=== PATIENT | male | born 1955 | race African-American/Black ===

== ENCOUNTER 2016-09-08 09:33 | Day surgery (SDC) | payer BC ==
[~2016-09-08 09:33] MED LIST: CHONDR SU A NA/HYALUR INTRAOC KIT (SURGICARE) ONE; EPINEPHRINE INJ/PF 1 MG/1 ML AMPULE ONE; KETOROLAC TROMETHAMINE 0.45% 4 DROP/0.4 ML DROPERETTE OD PRN; LIDOCAINE 1% INJ-PF (10 MG/ML) 30 ML SDV ONE; TOBRAMYCIN SULFATE/DEXAMETH OPH OINTMENT 3.5 GM ONE
[2016-09-08] MEDS ORDERED: EPINEPHRINE INJ/PF 1 MG/1 ML AMPULE ONE (10:02)
[2016-09-08] MEDS ORDERED: TOBRAMYCIN SULFATE/DEXAMETH OPH OINTMENT 3.5 GM ONE (10:03)
[2016-09-08] MEDS ORDERED: LIDOCAINE 1% INJ-PF (10 MG/ML) 30 ML SDV ONE (10:03)
[2016-09-08] MEDS ORDERED: CHONDR SU A NA/HYALUR INTRAOC KIT (SURGICARE) ONE (10:03)
[2016-09-08] MEDS: CYCLOPENTOLATE 0.2%/PHENYLEPHRINE 1% OPH SOLN 2 ML OD PRN ×3 (10:19→10:45)
[2016-09-08] MEDS: TROPICAMIDE 1% OPH SOLN 3 ML OD PRN ×3 (10:20→10:46)
[2016-09-08] MEDS: BESIFLOXACIN HCL 0.6% OPH SUSP 5 ML BOTTLE OD PRN ×3 (10:21→11:17)
[2016-09-08] MEDS: TETRACAINE HCL 0.5% OPH SOLN 0.6 ML DROPERETTE OD PRN ×3 (10:23→11:00)
[2016-09-08] MEDS ORDERED: MIDAZOLAM 2 MG/2 ML INJ ONE (10:48)
[2016-09-08] MEDS ORDERED: FENTANYL CITRATE INJ/PF 100 MCG/2 ML AMPUL ONE (10:49)
== END 2016-09-08 12:02 | disposition home or self-care (01) ==
LOC: SC 09:33
PROVIDERS: ATTEND Ophthalmology
PROC: 08RJ3JZ Replacement of Right Lens with Synthetic Substitute, Percutaneous Approach (ICD-10-PCS; principal; 2016-09-08 10:45)
DX: H25.11 Age-related nuclear cataract, right eye (principal); I10 Essential (primary) hypertension; Z79.899 Other long term (current) drug therapy; Z87.891 Personal history of nicotine dependence
CPT/HCPCS: 66984; 82962; V2630; J2250; J3490 ×3; J0171; J3010; 142

== ENCOUNTER 2017-09-08 06:56 | Day surgery (SDC) | payer OTHER, BC ==
[~2017-09-08 06:56] MED LIST changes: -CHONDR SU A NA/HYALUR INTRAOC KIT (SURGICARE) ONE; -EPINEPHRINE INJ/PF 1 MG/1 ML AMPULE ONE; -KETOROLAC TROMETHAMINE 0.45% 4 DROP/0.4 ML DROPERETTE OD PRN; +KETOROLAC TROMETHAMINE 0.45% 4 DROP/0.4 ML DROPERETTE OS PRN; -LIDOCAINE 1% INJ-PF (10 MG/ML) 30 ML SDV ONE; -TOBRAMYCIN SULFATE/DEXAMETH OPH OINTMENT 3.5 GM ONE
[2017-09-08] MEDS: TROPICAMIDE 1% OPH SOLN 3 ML OS PRN ×3 (07:50→08:10)
[2017-09-08] MEDS: CYCLOPENTOLATE 0.2%/PHENYLEPHRINE 1% OPH SOLN 2 ML OS PRN ×3 (07:50→08:10)
[2017-09-08] MEDS: TETRACAINE HCL 0.5% OPH SOLN 2 ML OS PRN ×4 (07:50→08:18)
[2017-09-08] MEDS: BESIFLOXACIN HCL 0.6% OPH SUSP 5 ML BOTTLE OS PRN ×4 (07:51→08:51)
[2017-09-08] MEDS ORDERED: MIDAZOLAM 2 MG/2 ML INJ ONE (08:00)
[2017-09-08] MEDS: EPINEPHRINE INJ/PF 1 MG/1 ML AMPULE ONE ×2 (08:28)
[2017-09-08] MEDS: LIDOCAINE 1% INJ-PF (10 MG/ML) 30 ML SDV ONE ×2 (08:29)
[2017-09-08] MEDS: CHONDR SU A NA/HYALUR INTRAOC KIT (SURGICARE) ONE ×2 (08:31)
--- NOTE | 2017-09-13 15:00 | [facility] DISCHARGE SUMMARY E ---
[facility] Discharge Summary NAME: KITA GAITAN AGE: 61Y ADMITTED: 09/08/2017 DISCHARGED: 09/08/2017 FINAL DIAGNOSIS: Cataract, left eye. HOSPITAL COURSE: This is a 61-year-old patient who underwent cataract extraction of the left eye. He underwent surgery because he was having difficulty seeing small print. DISCHARGE INSTRUCTIONS: He should be on a regular diet. No bending at his waist, no heavy lifting. He should use Besivance, Ilevro and Durezol at 3:00 p.m. and 8:00 p.m. Sleep with a rigid shield. I will see him for a 1-day postoperative tomorrow. DICTATING PHYSICIAN: NIKOLAI PRITCHETT M.D. [id number] PHY#: [id number] ID: [id number] JOB#: [id number] ACCT: [id number] cc:NIKOLAI PRITCHETT M.D. >
--- NOTE | 2017-09-13 15:00 | [facility] OPERATIVE REPORT E ---
[facility] Operative Report NAME: KITA GAITAN AGE: 61Y DATE OF SURGERY: 09/08/2017 ROOM: PREOPERATIVE DIAGNOSIS: CATARACT, LEFT EYE. POSTOPERATIVE DIAGNOSIS: CATARACT, LEFT EYE. OPERATION: Cataract extraction with insertion of an IOL of the left eye. SURGEON: NIKOLAI PRITCHETT M.D. ANESTHESIA: Topical. PROCEDURE: After obtaining appropriate consent, the patient's left eye was prepped and draped in sterile fashion as well as the surgeon in a sterile manner and cataract surgery was started. First a paracentesis blade was used to make a side-port incision. Viscoelastic was used to inflate the anterior chamber. Next a 2.4 mm incision was made with a 2.4 mm blade, clear corneal temporally. A continuous capsulorrhexis was made using a cystotome and Utrata forceps. Following this hydrodissection was carried out to make the lens fully loose and mobile and it was rotated 90 degrees. Following this, a [id number] technique was used to phacoemulsify the lens with a CDE of 10.92. The remaining cortex was removed with irrigation/aspiration. Provisc was instilled into the capsular bag to inflate the bag. A ZCB00, 23.5 diopter lens was placed. The remaining viscoelastic material was removed with irrigation/aspiration. Following this, the incision was found to be watertight. Besivance was instilled into the eye and a protective shield was placed over the eye. The patient returned to the postoperative recovery in stable condition. DICTATING PHYSICIAN: NIKOLAI PRITCHETT M.D. [id number] PHY#: [id number] ID: [id number] JOB#: [id number] ACCT: [id number] cc:NIKOLAI PRITCHETT M.D. >
== END 2017-09-08 09:27 | disposition home or self-care (01) ==
LOC: SC 06:56
PROVIDERS: ATTEND Internal Medicine
DX: H25.12 Age-related nuclear cataract, left eye (principal); Z96.1 Presence of intraocular lens; E11.9 Type 2 diabetes mellitus without complications; I10 Essential (primary) hypertension; Z87.891 Personal history of nicotine dependence; Z79.899 Other long term (current) drug therapy
CPT/HCPCS: 66984; V2632; J2250; J3490 ×2; J0171; 142

== ENCOUNTER 2018-02-05 23:29 | Emergency (ER) | payer OTHER, BC ==
[2018-02-06 00:51] LABS: AMORPHOUS SEDIMENT,URINE TRACE /HPF; APPEARANCE,URINE CLOUDY; BILIRUBIN,URINE NEGATIVE (NEGATIVE); COLOR,URINE YELLOW; GLUCOSE, URINE NEGATIVE (NEGATIVE); KETONES,URINE TRACE mg/dL (NEGATIVE); LEUKOCYTE ESTERASE,URINE LARGE (NEGATIVE); NITRITE,URINE NEGATIVE (NEGATIVE); PROTEIN,URINE NEGATIVE (NEGATIVE); URINE SPECIFIC GRAVITY 1.006; UROBILINOGEN,URINE NEGATIVE mg/dL (<2.0)
[2018-02-06] MEDS ORDERED: SULFAMETHOXAZOLE/TRIMETHOPRIM 800-160 MG TABLET PO ONE (01:08)
--- NOTE | 2018-02-06 01:11 | ER Document Report ---
ED General - General Chief Complaint: Urinary Frequency Stated Complaint: FREQUENT URINATION Time Seen by Provider: 02/06/18 00:49 Notes: Patient is a 62-year-old male presents with complaint of urinary frequency for the last 2-3 days. He says he does not have any true pain but feels a sensation as if his bladder is full and then has to go to urinate and not much urine will come out. Denies any history of prostate issues. No fevers. No diarrhea. Says his primary care doctor is the [place]. He denies any recent sexual activity or risk for sexually transmitted disease. He denies any abnormal discharge from his penis. No abdominal pain. TRAVEL OUTSIDE OF THE [place] IN LAST 30 DAYS: No - Related Data Allergies/Adverse Reactions: No Known Allergies Allergy (Unverified 09/03/16 14:14) Past Medical History - Social History Smoking Status: Never Smoker Frequency of alcohol use: None Drug Abuse: None Family History: Reviewed & Not Pertinent - Past Medical History Cardiac Medical History: Reports: Hx Hypertension Denies: Hx Heart Attack Pulmonary Medical History: Denies: Hx Asthma Neurological Medical History: Denies: Hx Cerebrovascular Accident, Hx Seizures GI Medical History: Denies: Hx Hepatitis, Hx Hiatal Hernia, Hx Ulcer Infectious Medical History: Denies: Hx Hepatitis Past Surgical History: Denies: Hx Open Heart Surgery, Hx Pacemaker Review of Systems - Review of Systems Notes: My Normal Review Basic REVIEW OF SYSTEMS: CONSTITUTIONAL : Denies fever, chills, or sweats. Denies recent illness. GASTROINTESTINAL: Denies abdominal pain. Denies nausea, vomiting, or diarrhea. Genitourinary: Patient has some urinary frequency with pressure in the bladder region when he has to go pee. MUSCULOSKELETAL: Denies neck or back pain or joint pain or swelling. SKIN: Denies rash or skin lesions. NEUROLOGICAL: Denies altered mental status or loss of consciousness. ALL OTHER SYSTEMS REVIEWED AND NEGATIVE. Physical Exam - Vital signs Vitals: Temp Pulse Resp BP Pulse Ox 98.4 F 101 H 18 149/76 H 96 02/05/18 23:44 02/05/18 23:44 02/05/18 23:44 02/05/18 23:44 02/05/18 23:44 - Notes Notes: General Appearance: Well nourished, alert, cooperative, no acute distress, no obvious discomfort. Well-appearing. Vitals: reviewed, See vital signs table. Eyes: PERRL, EOMI, Conjuctiva clear Abdomen: Normal BS, soft, No rigidity, No abdominal tenderness, No guarding, no rebound, no abdominal masses, no organomegaly Multiple: Normal external genitalia without rash. No urethral discharge. Skin: warm, dry, appropriate color, no rash Neuro: speech clear, oriented x 3, normal affect, responds appropriately to questions. Course - Re-evaluation Re-evalutation: 02/06/18 06:00 Patient's urinalysis shows evidence of infection. Based on the patient's age and no previous history of UTIs suspect this most likely related to prostatitis. We will treat him with 14 days of antibiotic. I encouraged him follow-up with his primary care doctor in 1 week for reevaluation and recheck the urine to make sure the infection is clear. I encourage him return to ER if he has fevers, worsening of his symptoms, or if he feels unwell. Patient agrees with plan and will be discharged home. Dictation of this chart was performed using voice recognition software; therefore, there may be some unintended grammatical errors. - Vital Signs Vital signs: Temp Pulse Resp BP Pulse Ox 97.7 F 102 H 18 148/92 H 100 02/06/18 01:23 02/06/18 01:23 02/06/18 01:23 02/06/18 01:23 02/06/18 01:23 - Laboratory Laboratory results interpreted by me: 02/06/18 00:29 Urine Ketones TRACE H Urine Blood MODERATE H Ur Leukocyte Esterase LARGE H Discharge - Discharge Clinical Impression: Pyuria Prostatitis Qualifiers: Prostatitis type: acute Qualified Code(s): N41.0 - Acute prostatitis Condition: Stable Disposition: HOME, SELF-CARE Additional Instructions: I suspect that your symptoms are likely related to prostatitis. This would be the most common cause of infection in your urine and the symptoms you are having at your age. I have prescribed an antibiotic. Please take it for 2 weeks. Please follow-up with your doctor in 1 week for reevaluation to make sure your symptoms are improving and also to make sure your urine is clearing. Please return to the ER immediately if you have fevers, pain, vomiting, or worsening of your symptoms. Please stop the antibiotic and return to the ER immediately if you develop a rash or diarrhea. Prescriptions: Sulfamethoxazole/Trimethoprim [Bactrim Ds Tablet] 1 each PO BID #28 tablet
[2018-02-06 01:25] VITALS: BP 148/92
== END 2018-02-06 01:47 | disposition home or self-care (01) ==
LOC: ER 23:29
DX: N39.0 Urinary tract infection, site not specified (principal); N41.0 Acute prostatitis; R35.0 Frequency of micturition; I10 Essential (primary) hypertension
CPT/HCPCS: 81001; 99283

== ENCOUNTER 2018-02-08 20:36 | Emergency (ER) | payer OTHER, BC ==
[2018-02-08] MEDS ORDERED: ONDANSETRON 4 MG TAB.RAPDIS PO ONE (21:03)
[2018-02-08] MEDS ORDERED: OXYCODONE-ACETAMINOPHEN 5-325 MG TABLET PO ONE (21:03)
--- NOTE | 2018-02-08 21:05 | ER Document Report ---
ED Medical Screen (RME) - General Chief Complaint: Pain With Urination Stated Complaint: PAINFUL URINATION Time Seen by Provider: 02/08/18 21:02 Mode of Arrival: Ambulatory Information source: Patient Notes: Patient is a 62-year-old male who presents with chief complaint of scrotal pain and dysuria. Patient reports he has had this ongoing since last Tuesday. He states he was seen here on Tuesday, diagnosed with prostatitis and placed on Bactrim. Patient reports since then his pain has only worsened. Patient reports he is frequently urinated approximately once every 5 minutes. Patient denies any history of prostate issues prior to this. Patient denies any fevers or blood in his urine. Exam: Patient alert, oriented and appears to be in moderate distress. I have greeted and performed a rapid initial assessment of this patient. A comprehensive ED assessment and evaluation of the patient, analysis of test results and completion of the medical decision making process will be conducted by additional ED providers. Dictation of this chart was performed using voice recognition software; therefore, there may be some unintended grammatical errors. TRAVEL OUTSIDE OF THE [place] IN LAST 30 DAYS: No - Related Data Allergies/Adverse Reactions: No Known Allergies Allergy (Unverified 09/03/16 14:14) Past Medical History - Social History Frequency of alcohol use: None - Past Medical History Cardiac Medical History: Reports: Hx Hypertension Denies: Hx Heart Attack Pulmonary Medical History: Denies: Hx Asthma Neurological Medical History: Denies: Hx Cerebrovascular Accident, Hx Seizures Renal/ Medical History: Denies: Hx Peritoneal Dialysis GI Medical History: Denies: Hx Hepatitis, Hx Hiatal Hernia, Hx Ulcer Infectious Medical History: Denies: Hx Hepatitis Past Surgical History: Denies: Hx Open Heart Surgery, Hx Pacemaker Physical Exam - Vital signs Vitals: Temp Pulse Resp BP Pulse Ox 98.5 F 86 18 175/78 H 98 02/08/18 20:45 02/08/18 20:45 02/08/18 20:45 02/08/18 20:45 02/08/18 20:45 Course - Vital Signs Vital signs: Temp Pulse Resp BP Pulse Ox 98.5 F 86 18 175/78 H 98 02/08/18 20:45 02/08/18 20:45 02/08/18 20:45 02/08/18 20:45 02/08/18 20:45
[2018-02-08 21:47] LABS: APPEARANCE,URINE SLIGHTLY-CLOUDY; BILIRUBIN,URINE NEGATIVE (NEGATIVE); COLOR,URINE YELLOW; GLUCOSE, URINE NEGATIVE (NEGATIVE); KETONES,URINE TRACE mg/dL (NEGATIVE); LEUKOCYTE ESTERASE,URINE LARGE (NEGATIVE); NITRITE,URINE NEGATIVE (NEGATIVE); PROTEIN,URINE NEGATIVE (NEGATIVE); URINE SPECIFIC GRAVITY 1.008; UROBILINOGEN,URINE NEGATIVE mg/dL (<2.0)
[2018-02-08] MEDS ORDERED: LIDOCAINE 2% URO-JET 5 ML KIT MM ONE (21:59)
--- NOTE | 2018-02-08 22:14 | RADIOLOGY REPORT (SQ) ---
EXAM DESCRIPTION: US SCROTUM COMPLETED DATE/TME: 02/08/2018 21:03 CLINICAL HISTORY: scrotal pain COMPARISON: None. FINDINGS: Sonographic images of the scrotum were submitted. The right testicle measured 3.4 x 2.6 x 2.2 cm. The left testicle measured 3.5 x 2.4 x 1.8 cm. There is no sonographic evidence of testicular torsion. There are bilateral hydrocele, right greater than left. The left epididymis is of normal contour. The right epididymis is enlarged and contains a 7 mm epididymal cyst. IMPRESSION: No sonographic evidence of testicular torsion. Enlarged right epididymis without increased flow of unknown etiology. Recommend follow-up.
--- NOTE | 2018-02-08 23:10 | ER Document Report ---
ED General - General Chief Complaint: Pain With Urination Stated Complaint: PAINFUL URINATION Time Seen by Provider: 02/08/18 21:02 Mode of Arrival: Ambulatory Information source: Patient Notes: This is a 62-year-old man with a history of hypertension who presented a few days ago with painful urination. His urine analysis at that time showed infection he was put placed on Bactrim for prostatitis. Patient presents today with continued symptoms including difficulty to urinate. Patient denies fever, back pain, nausea vomiting. TRAVEL OUTSIDE OF THE [place] IN LAST 30 DAYS: No - HPI Onset: Last week Onset/Duration: Gradual Quality of pain: Other - Discomfort with difficulty urinating Severity: Moderate Pain Level: 2 Associated symptoms: denies: Chest pain, Fever, Shortness of breath Exacerbated by: Denies Relieved by: Denies Similar symptoms previously: Yes Recently seen / treated by doctor: Yes - Related Data Allergies/Adverse Reactions: No Known Allergies Allergy (Unverified 09/03/16 14:14) Past Medical History - General Information source: Patient - Social History Smoking Status: Former Smoker Cigarette use (# per day): No Chew tobacco use (# tins/day): No Frequency of alcohol use: None Lives with: Family Family History: Reviewed & Not Pertinent Patient has suicidal ideation: No Patient has homicidal ideation: No - Past Medical History Cardiac Medical History: Reports: Hx Hypertension Denies: Hx Heart Attack Pulmonary Medical History: Denies: Hx Asthma Neurological Medical History: Denies: Hx Cerebrovascular Accident, Hx Seizures Renal/ Medical History: Denies: Hx Peritoneal Dialysis GI Medical History: Denies: Hx Hepatitis, Hx Hiatal Hernia, Hx Ulcer Infectious Medical History: Denies: Hx Hepatitis Past Surgical History: Denies: Hx Open Heart Surgery, Hx Pacemaker Review of Systems - Review of Systems Constitutional: denies: Chills, Fever EENT: No symptoms reported Cardiovascular: No symptoms reported Respiratory: No symptoms reported Gastrointestinal: No symptoms reported Genitourinary: See HPI Male Genitourinary: See HPI Musculoskeletal: No symptoms reported Skin: No symptoms reported Hematologic/Lymphatic: No symptoms reported Neurological/Psychological: No symptoms reported Physical Exam - Vital signs Vitals: Temp Pulse Resp BP Pulse Ox 98.5 F 86 18 175/78 H 98 02/08/18 20:45 02/08/18 20:45 02/08/18 20:45 02/08/18 20:45 02/08/18 20:45 Notes: Physical exam: GENERAL: She is alert and oriented x3, no acute distress HEAD: Atraumatic, normocephalic. EYES: Pupils equal round and reactive to light, extraocular movements intact, sclera anicteric, conjunctiva are normal. ENT: TMs normal, nares patent, oropharynx clear without exudates. Moist mucous membranes. NECK: Normal range of motion, supple without obvious mass or JVD. LUNGS: Breath sounds clear to auscultation bilaterally and equal. No wheezes rales or rhonchi. HEART: Regular rate and rhythm without murmurs, rubs or gallops. ABDOMEN: Soft, normoactive bowel sounds. No tenderness to palpation. No guarding, no rebound. No masses appreciated. Testes: X2, epididymis nontender. Rectal: No masses, the prostate is nontender but enlarged, stool brown, sent for study. EXTREMITIES: Normal range of motion, no pitting or edema. No clubbing or cyanosis. NEUROLOGICAL: Cranial nerves II through XII grossly intact. Normal speech, moving all extremities. PSYCH: Normal mood, normal affect. SKIN: Warm, Dry, normal turgor, no rashes or lesions noted. Course - Re-evaluation Re-evalutation: 02/08/18 23:11 Herrmann was placed in the ER. Patient is put out a fair amount of urine. His symptoms have significantly improved after the Herrmann. I think the patient has an obstructive uropathy from an enlarged prostate. His prostate is nontender at this time which goes against prostatitis. We will continue the antibiotics. We will check BUN and creatinine giving the obstructive uropathy. We will give him a leg bag and have him follow-up with urology as an outpatient. 02/09/18 00:25 Discussed with the patient that there was some cysts on ultrasound as well and he will need follow-up with the urologist. I have given him a copy of the ultrasound report as well as the ultrasound on disc for that referral. - Vital Signs Vital signs: Temp Pulse Resp BP Pulse Ox 98.2 F 77 15 134/62 H 94 02/08/18 23:23 02/08/18 23:23 02/08/18 23:23 02/08/18 23:23 02/08/18 23:23 - Laboratory Result Diagrams: 02/08/18 23:10 02/08/18 23:10 Laboratory results interpreted by me: 02/08/18 02/08/18 02/08/18 20:47 23:10 23:10 RBC 4.22 L Hgb 13.4 L Seg Neutrophils % 80.8 H Lymphocytes % 10.3 L Sodium 132.3 L Chloride 96 L Carbon Dioxide 20 L Total Bilirubin 2.1 H Direct Bilirubin 0.6 H ALT 16 L Urine Ketones TRACE H Ur Leukocyte Esterase LARGE H - Diagnostic Test Radiology reviewed: Image reviewed, Reports reviewed - Ultrasound shows no evidence of testicular torsion. Patient does have hydroceles and epididymal cyst Discharge - Discharge Clinical Impression: obstructive uropathy Condition: Stable Disposition: HOME, SELF-CARE Additional Instructions: Follow up with your primary care doctor at the [facility] on Tuesday as planned. Bring a copy of today's labs with you when you go. A copy of the testicular ultrasound with you when you go. Tell them that a urine culture was sent. When the Herrmann was placed in the emergency room, you put out 900 cc of urine. This is consistent with urinary retention most likely from an enlarged prostate. Your prostate did feel enlarged on exam, it was nontender (so I do not think you have prostatitis). Continue the antibiotic for a total of 7 days only given that you did have some white cells in your urine. Important that you follow-up with the urologist: It is recommended that you follow-up with a urologist: [facility] [place] [address] [place], [place] [phone] [place] [facility] [address] [place], [place] [phone] The ultrasound did show some cysts of the epididymis: Bring a keep a copy of the ultrasound as well as the ultrasound report with you when you see the urologist. Return to the emergency room for worsening pain, fever (temperature greater than 100.5) or any concerns or getting worse. Prescriptions: Tamsulosin HCl [Flomax 0.4 mg Cap.sr] 0.4 mg PO DAILY #7 cap.sr.24h
[2018-02-08] MEDS ORDERED: TAMSULOSIN HCL 0.4 MG CAP.SR.24H PO ONE (23:14)
[2018-02-08 23:20] LABS: ABSOLUTE EOSINOPHILS # (AUTO) 0.1 10^3/uL (0.0-0.6); ABSOLUTE MONOCYTES (AUTO) 0.8 10^3/uL (0.1-1.4); ABSOLUTE NEUT (AUTO) 8.1 10^3/uL (1.7-8.2); BASOPHILS % (AUTO) 0.3 % (0-2); EOSINOPHILS % (AUTO) 0.6 % (0-6); HEMATOCRIT 37.9 % (37.9-51.0); HEMOGLOBIN 13.4 g/dL (13.5-17.0); LYMPHOCYTES % (AUTO) 10.3 % (13-45); MEAN CORPUSCULAR HEMOGLOBIN 31.7 pg (27.0-33.4); MEAN CORPUSCULAR HGB CONC 35.3 g/dL (32.0-36.0); MEAN CORPUSCULAR VOLUME 90 fl (80-97); PLATELET COUNT 256 10^3/uL (150-450); RED BLOOD COUNT 4.22 10^6/uL (4.35-5.55); RED CELL DISTRIBUTION WIDTH 13.3 % (11.5-14.0); SEGMENTED NEUTROPHILS % (AUTO) 80.8 % (42-78); TOTAL CELLS COUNTED % (AUTO) 100 %
[2018-02-08 23:40] LABS: ALANINE AMINOTRANSFERASE 16 U/L (21-72); ALKALINE PHOSPHATASE 98 U/L (38-126); ANION GAP 16 (5-19); ASPARTATE AMINO TRANSFERASE 39 U/L (17-59); BILIRUBIN,DIRECT 0.6 mg/dL (0.0-0.4); BILIRUBIN,TOTAL 2.1 mg/dL (0.2-1.3); BLOOD UREA NITROGEN 9 mg/dL (7-20); CALCIUM 9.2 mg/dL (8.4-10.2); CARBON DIOXIDE 20 mmol/L (22-30); CHLORIDE 96 mmol/L (98-107); GLUCOSE 96 mg/dL (75-110); SODIUM 132.3 mmol/L (137-145); TOTAL PROTEIN 6.9 g/dL (6.3-8.2)
[2018-02-09 00:51] VITALS: BP 124/60
== END 2018-02-09 00:51 | disposition home or self-care (01) ==
LOC: ER 20:36
DX: N13.9 Obstructive and reflux uropathy, unspecified (principal); R30.9 Painful micturition, unspecified; R50.9 Fever, unspecified; R06.02 Shortness of breath; I10 Essential (primary) hypertension; Z87.891 Personal history of nicotine dependence
CPT/HCPCS: 99284; 51702; 36415; 87086; 85025; 82272; 87088; 80053; 81001; 87186; 76870; 93976; C1758; S0119; J3490